=== PATIENT | female | born 1940 | race Caucasian/White ===

== ENCOUNTER 2018-02-14 02:06 | Inpatient (IN) | payer OTHER, MEDICARE ==
[~2018-02-14] VITALS: Ht 154.9 cm; Wt 71.4 kg
[~2018-02-14 02:06] MED LIST: ACETAMINOPHEN/O1 TAB PO; ANAPROX DS550 MG PO; CENTRUM SILVER1 EAC3 PO; FAMOTIDINE20 M1 PO; FAMOTIDINE20 MG PO; FLEXERIL10 MG PO; LOVASTATIN40 M1 PO; MEVACOR40 MG PO; OXY IR5 MG PO; ULTRAM50 M1 PO; VALIUM2 MG PO; VITAMIN C1000 M4 PO; VITAMIN D-32000 UNI1 PO
[2018-02-14] MEDS ORDERED: ALIGN4 M1 PO (07:00)
--- NOTE | 2018-02-14 09:39 | Operative Report ---
Operative/Inv Procedure Report Surgery Date: 02/14/18 Name of Procedure: Right total hip arthroplasty Pre-Operative Diagnosis: Right hip primary osteoarthritis Post-Operative Diagnosis: Same Estimated Blood Loss: 200 Surgeon/Aluminum Siding Mechanic: Elaine STRATTON,Elio Vernon Anesthesia: general endotracheal tube Implants: Dax secure fit femoral stem size 8 with a 127 neck angle 54 acetabulum Trident 36+0 Biolox femoral head Drains: None Specimens: Femoral head and acetabular reamings, degenerative labrum Microbiology: Urine Complications: None Condition: Stable Operative Indication: Patient is a 77-year-old woman with a fairly long history of gradually worsening right hip symptoms. Symptoms were controlled with conservative measures for a period of time. However, more recently her symptoms worsened and did not respond to standard conservative treatments. Due to these ongoing symptoms that interfere with normal activities of daily living, she wished to proceed with total hip arthroplasty. Risks, benefits and expectations were discussed which included but were not limited to persistent hip pain, need for subsequent surgery, infection, DVT, injury to blood vessel or nerve, dislocation leg length discrepancy and anesthesia risks Operative/Procedure Note Note: Patient was brought to the operating room and transferred to the operating table. Once under appropriate anesthesia the patient was placed into a left lateral decubitus position with right side up. All bony prominences were well- padded. The right lower extremity was prepped and draped in standard fashion. Preoperative IV antibiotics were given prophylactically. A standard lateral incision was made for anticipated superior approach the hip. Incision was taken down sharply to the underlying fascia. The fascia was incised in line with the skin incision. Hip was internally rotated placing the external rotators on tension. Piriformis is identified and reflected posteriorly this was bluntly to identify the interval between the gluteus minimus tendon and the superior capsule and a retractor was placed in this interval. An inferior retractor was placed under the femoral neck. The capsule was incised. A rectangular portion of the capsule was reflected posteriorly for later repair. Superior and inferior portions of the capsule were excised. Hip was dislocated. Severe end- stage generative changes and eburnated bone of the femoral head was identified. Retractors were placed to protect the soft tissues as the femoral neck cut was made. This cut was made based on preoperative templating and intraoperative measurements and anatomy. This exposed the acetabulum. Again there was matching degenerative changes of the acetabular fossa. Anterior retractor was placed. Large portion of the anterior labrum was was very degenerative. The labrum was excised circumferentially. An inferior retractor was placed as well. Remaining soft tissues were removed from the acetabular fossa. This was followed by reaming up to a size 53 for anticipated insertion of a size 54 acetabular shell. A trial 52 shell was used to confirm circumferential reaming. The acetabulum was slightly all long. I was satisfied with the circumferential reaming. I removed the trial area copious irrigation of the acetabular fossa followed. Then I inserted the definitive size 54 Trident acetabulum with the appropriate anteversion and abduction based on anatomy, templating and Dax tower. Excellent scratch fit. I then placed 2 cancellus screws in the safe zone. After irrigation of the acetabular shell, I placed the definitive liner to accept a 36 mm femoral head. The locking mechanism was confirmed. The left sponges place and the acetabular fossa to protect the polyethylene during preparation of the femur area hip was internally rotated 90 and flexed about 60 site. Hand reamers up to a size 8. I broached to a size 8. I was satisfied with the fit and fill of a size 8 broach. I left this in place and trialed off of this. Again, based on patient's anatomy a 127 neck angle was chosen. The reduction was performed. Excellent stability. Leg lengths were matched. I was satisfied with the stability with the trial in place. No evidence of posterior instability with simultaneous internal rotation adduction and flexion to greater than 90. No evidence of anterior instability with simultaneous external rotation and extension. No evidence of impingement. Copious irrigation followed. I removed the trial femoral stem from the canal. After copious irrigation was completed I placed the definitive size 8 secure fit femoral stem the appropriate version based on the position of the previously removed broach. Excellent scratch fit. The trunnion was dried and the definitive size 36+0 Biolox femoral head was impacted in place. The locking mechanism was confirmed. Hip was reduced and stability was confirmed once again as was the leg lengths. Copious irrigation followed every level of closure. The capsule and piriformis were repaired. The fascia was closed with interrupted #1 Vicryl sutures. Subcutaneous tissues closed in 2 layers due to the depth of the wound with 2-0 Vicryl and skin was closed with francheska. Appropriate dressings were applied and patient was awakened and taken the recovery room in good condition. No intraoperative complications blood loss was approximately 200 mL Discharge Disposition: PACU
--- NOTE | 2018-02-14 11:14 | RADIOLOGY REPORT ---
EXAMINATION: XR HIP, RIGHT CLINICAL INFORMATION: Status post right total hip replacement. COMPARISON: None TECHNIQUE: Single view of the right hip. FINDINGS: There has been a right total hip replacement. Alignment appears anatomic on this single view. No evidence of periprosthetic fracture, or hardware dislocation. The visualized pelvic ring is intact. There are immediately postoperative changes including soft tissue air and skin francheska. IMPRESSION: Expected immediately postoperative appearance after right total hip replacement.
[2018-02-14 11:28] VITALS: BP 134/82
--- NOTE | 2018-02-14 13:36 | Admission Core Measures ---
Acute Coronary Syndrome (CM) ACS Core Measures Acute Coronary Syndrome Diagnosis No Congestive Heart Failure (NEW) CHF Core Measures Congestive Heart Failure Diagnosis No Cerebrovascular Accident (NEW) CVA Core Measures CVA/TIA Diagnosis No Venous Thromboembolism VTE Core Placido (View Protocol) VTE Risk Factors Surgery No Mechanical VTE Prophylaxis d/t N/A MechProphylax Ordered No VTE Pharm Prophylaxis d/t NA PharmProphylax ordered Problem List As ranked by this Provider includes Assessment & Plan 1. Unilateral primary osteoarthritis, right hip HOME MEDS Home Med List Ascorbic Acid (Vitamin C) 1,000 MG TAB 1 TAB PO DAILY SUPPLEMENT (Reported) Bifidobacterium Infantis (Align) 4 MG (1 BILLION CELL) CAPSULE 1 PO D unknown (Reported) CHOLECALCIFEROL (VITAMIN D3) (Vitamin D) 2,000 IU SGL 1 CAP PO DAILY SUPPLEMENT (Reported) CYCLOBENZAPRINE HCL (Flexeril) 10 MG TAB 1 TAB PO TID PRN SPASM Famotidine 20 MG TAB 1 TAB PO BID GI (Reported) Lovastatin 40 MG TAB 1 TAB PO DAILY CHOLESTEROL (Reported) MULTIVIT-MIN/FA/LYCOPEN/LUTEIN (Centrum Silver Tablet) 1 TAB TAB 1 TAB PO DAILY SUPPKLEMENT (Reported) Naproxen (Anaprox Ds) 550 MG TABLET 1 TAB PO BID PRN pain OXYCODONE HCL/ACETAMINOPHEN (Oxycodone-Acetaminophen 5-325) 1 TAB TAB 1 TAB PO BID PRN PAIN (Reported) Oxycodone Hydrochloride (Oxy Ir) 5 MG CAP 1-2 TAB PO Q6H PRN PAIN Tramadol HCl (Ultram) 50 MG TABLET 1-2 TAB PO Q6PRN PRN severe pain
--- NOTE | 2018-02-14 13:45 | Patient Discharge Instructions ---
Discharge Instructions General Discharge Information You were seen/treated for: Right hip pain related to unilateral primary osteoarthritis You had these procedures: Right total hip replacement Watch for these problems: Increasing pain despite the use of pain medications Increasing redness, warmth and swelling Drainage of any type from incision Inability to bear weight on operative leg Inability to urinate or move bowels Persistant nausea and vomitting Fever greater than 101.5 Do not soak the wound: Yes No bath, but you may shower: Yes Other wound care: Keep wound clean and dry No ointments of any kind on or near incision, no exceptions Diet Continue normal diet: Yes Recommended Diet: Regular Activity Full Activity/No Limits: No Activity Self Limited: Yes Pounds, do NOT lift more than: 10 Additional ACTIVITY Info: Posterior hip precautions: No bending greater than 90 degrees at waste Do not cross right leg over left leg Do not bend right leg and rotate it inward *do not lift posterior hip precautions until otherwise told to do so by Dr. Henry* Acute Coronary Syndrome Inclusion Criteria At DC or during hospital stay patient has or had the following: ACS DIAGNOSIS No Discharge Core Measures Meds if any: Prescribed or Continued at Discharge Meds if any: NOT Prescribed or Continued at Discharge Congestive Heart Failure Inclusion Criteria At DC or during hospital stay patient has or had the following: CHF DIAGNOSIS No Discharge Core Measures Meds if any: Prescribed or Continued at Discharge Meds if any: NOT Prescribed or Continued at Discharge Cerebrovascular accident Inclusion Criteria At DC or during hospital stay patient has or had the following: CVA/TIA Diagnosis No Discharge Core Measures Meds if any: Prescribed or Continued at Discharge Meds if any: NOT Prescribed or Continued at Discharge Venous thromboembolism Inclusion Criteria VTE Diagnosis No VTE Type NONE VTE Confirmed by (Test) NONE Discharge Core Measures - Per Current guidelines, there needs to be overlap - treatment for the first 5 days of Warfarin therapy. - If discharged on Warfarin prior to 5 days of - overlap therapy, the patient will need to be - assessed for post discharge needs including - *Post discharge parental anticoagulation - *Warfarin and/or parental anticoagulation education - *Follow up date to check INR post discharge At least 5 days overlap therapy as Inpatient No Meds if any: Prescribed or Continued at Discharge Note: Overlap Therapy is Warfarin and Anticoagulant Meds if any: NOT Prescribed or Continued at Discharge
--- NOTE | 2018-02-14 13:50 | Surgical Discharge Summary ---
Visit Information Visit Dates Admission Date: 02/14/18 Discharge Date: 02/16/18 History of Present Illness Chief Complaint: Right hip pain related to uninlateral primary osteoarthritis Medical History Blood Transfusion Hx: No Neurological: NONE EENT: cataracts Cardiovascular: hypertension, hyperlipidemia Respiratory: NONE Gastrointestinal: GERD Hepatic: NONE Renal: NONE Musculoskeletal: sciatica, OA R ANKLE (DEFORMITIY R ANKLE) Psychiatric: NONE Endocrine: NONE Blood Disorders: NONE Cancer(s): NONE IT DESKTOP SUPPORT SPECIALIST/Reproductive: NONE History of MRSA: No History of VRE: No History of CDIFF: No Isolation History: Standard Surgical History Pertinent Surgical History: hysterectomy, laminectomy, "BACK SURGEY". R ANKLE "RECONSTRUCTION , ? EVENS SNOOK PRODECURE, ACHILLES LENGTHENING" " HERNIA REPAIR PARATHYROIDECTOMY Psychosocial History Where Do You Live? Home Who Do You Live With? Spouse What is Your Primary Language? Malay Review of Systems: See H&P Hospital Course Course Attending Physician: Elaine STRATTON,Saulo Primary Care Physician: Eduardo Baxter MD Hospital Course: Chris was admitted to the hosptial on 02/14/18 after undergoing a right sided total hip replacement. She tolerated the procedure well and was transferred to a general surgical floor. Her diet was advanced and tolerated. She voided spontaneously. She was evaluated and treated by physical therapy. At the time of hospital discharge, her vital signs were stable and within normal limits, her neurovascular status was intact and her pain was controlled with the use of oral pain medication. She was deemed appropriate for discharge. Allergies: Coded Allergies: NO KNOWN ALLERGIES (05/29/11) Disposition Summary Disposition Principal Diagnosis: Right hip unilateral primary osteoarthritis Additional Diagnosis: None Discharge Disposition: home health services Discharge Instructions General Discharge Information Code Status: Full Code Patient's Diet: Regular, advance as tolerated Patient's Activity: WBAT Follow-Up Instructions/Appts: Follow up with Dr. Henry in 2 weeks from date of surgery Medications at Discharge Discharge Medications: Stop taking the following medications: OXYCODONE HCL/ACETAMINOPHEN (Oxycodone-Acetaminophen 5-325) 1 TAB TAB ORAL TWICE DAILY as needed for PAIN Qty = 42 Oxycodone Hydrochloride (Oxy Ir) 5 MG CAP ORAL Q6H as needed for PAIN Qty = 20 Naproxen (Anaprox Ds) 550 MG TABLET ORAL TWICE DAILY as needed for pain Qty = 60 Tramadol HCl (Ultram) 50 MG TABLET ORAL EVERY 6 HOURS NEEDED as needed for severe pain Qty = 30 Continue taking these medications: Lovastatin (Lovastatin) 40 MG TAB 1 Tablet ORAL DAILY Qty = 90 Instructions: with food Comments: PER PT Famotidine (Famotidine) 20 MG TAB 1 Tablet ORAL TWICE DAILY Qty = 180 Comments: PER PT CHOLECALCIFEROL (VITAMIN D3) (Vitamin D) 2,000 IU SGL 1 Capsule ORAL DAILY Comments: PER PT Ascorbic Acid (Vitamin C) 1,000 MG TAB 1 Tablet ORAL DAILY Comments: PER PT MULTIVIT-MIN/FA/LYCOPEN/LUTEIN (Centrum Silver Tablet) 1 TAB TAB 1 Tablet ORAL DAILY Comments: PER PT CYCLOBENZAPRINE HCL (Flexeril) 10 MG TAB 1 Tablet ORAL THREE TIMES DAILY as needed for SPASM Qty = 15 Bifidobacterium Infantis (Align) 4 MG (1 BILLION CELL) CAPSULE 1 ORAL Every Day
--- NOTE | 2018-02-14 13:51 | PN- Orthopedic ---
Subjective Subjective: Pt complaining of fatigue and dry mouth. Her body temperature has been recorded as 94.5 rectally, but patient denies feeling cold. She denies chest pain, shortness of breath and difficulty breathing. She denies nausea and vomitting. She denies surgical pain presently. She has yet to ambulate. She has yet to void, neal catheter remaining in place. Objective Vital Signs and I&Os Vital Signs Date Time Temp Pulse Resp B/P B/P Pulse O2 O2 Flow FiO2 Mean Ox Delivery Rate 02/14 1209 94.5 02/14 1128 85 18 134/82 96 Room Air Intake & Output 02/14 1600 02/14 0800 02/14 0000 02/13 1600 02/13 0800 02/13 0000 Intake Total Output Total Balance Patient 157 lb Weight Weight Bed scale Measurement Method Physical Exam: General: Tired, oriented x3 Cardiac: RRR, s1s2 Pulm: CTA bialterally, non-labored respiratory effort, no cyanosis Abdomen: Non-tender, non-distended Extremities: Moves all extremities, distal sensation grossly intact. Skin warm and dry to touch, and well perfused. Abduction pillow in place, no resting internal or external rotation of right hip. Dressing dry and intact. Thigh compartment soft. Bilateral calves soft and non-tender Assessment/Plan Assessment/Plan This is a 77 year old female, PMH significant for hld and gerd. She is pod 0, s /p R THR. Monitoring body temperature now for rectal reading of 94.5. Moist heat applied in axilla, warm blankets applied, head wrapped in towel. -Recommend warm broth versus cool liquids for now -Continue external heat applications, rice sock preferable but reportedly unavailable -Continue to assess body temperature, skin checks -IV fluids for hydration, will dc if pt tolerating adequate po -Continue posterior hip precautions: abduction pillow in place -Mechanical dvt ppx: ALPS -Pharm dvt ppx: eliquis 2.5 bid to start tomorrow -Abx ppx: Vancomycin for 1 additional dose -Pain control: percocet with iv morphine for breakthrough -Activity: OOB, wbat, posterior hip precautions -Dressing: To be changed by surgical pa on POD 2 Will discuss plan of care with Dr. Henry Core Measures Venous Thromboembolism VTE Risk Factors Surgery No Mechanical VTE Prophylaxis d/t N/A MechProphylax Ordered No VTE Pharm Prophylaxis d/t NA PharmProphylax ordered
[2018-02-14 14:00] VITALS: BP 125/77
[2018-02-14 16:18] VITALS: BP 124/82
[2018-02-14 17:33] VITALS: BP 128/86
[2018-02-14 22:01] VITALS: BP 140/82
[2018-02-15 01:00] VITALS: BP 132/82
[2018-02-15 06:45] VITALS: BP 112/66
[2018-02-15 08:31] LABS: ABSOLUTE BASOPHIL COUNT 0 /CUMM (0.0-0.2); ABSOLUTE EOSINOPHIL COUNT 0 /CUMM (0.0-0.7); ABSOLUTE GRANULOCYTE CT 5.1 /CUMM (1.4-6.5); ABSOLUTE LYMPH COUNT 0.9 /CUMM (1.2-3.4); ABSOLUTE MONOCYTE COUNT 0.5 /CUMM (0.10-0.60); BASOPHIL % 0.2 % (0.0-2.0); EOSINOPHIL % 0.6 % (0-5); GRANULOCYTE % 77.8 % (42.2-75.2); HEMATOCRIT 29.5 % (37-47); MEAN CORPUSCULAR HGB 30.7 PG (27.0-31.0); MEAN CORPUSCULAR HGB CONC 32.6 G/DL (33.0-37.0); MEAN CORPUSCULAR VOLUME 93.9 FL (81.0-99.0); MEAN PLATELET VOLUME 8.2 FL (7.4-10.4); PLATELET COUNT 211 /CUMM (130-400); RBC DISTRIBUTION WIDTH 14.8 % (11.5-14.5); RED BLOOD CELL CT 3.15 /CUMM (4.20-5.40); WHITE BLOOD CELL COUNT 6.5 /CUMM (4.8-10.8)
--- NOTE | 2018-02-15 08:32 | PN- Orthopedic ---
See Addendum Subjective Subjective: Is feeling more alert vs yesterday. Did not ask for any pain medication overnight, is feeling discomfort now. Has yet to get oob. Neal to be dc'd this am. Denies chest pain, shortness of breath and difficulty breathing. Denies nausea and vomitting, tolerating po well. Objective Vital Signs and I&Os Vital Signs Date Time Temp Pulse Resp B/P B/P Pulse O2 O2 Flow FiO2 Mean Ox Delivery Rate 02/15 0645 97.8 75 20 112/66 97 Room Air 02/15 0100 97.9 63 18 132/82 96 Room Air 02/14 2201 97.6 95 20 140/82 93 Room Air 02/14 1733 93 128/86 96 Room Air 02/14 1618 94 124/82 98 Room Air 02/14 1552 96.0 02/14 1545 94.5 02/14 1431 95.8 02/14 1400 94.9 92 17 125/77 96 Room Air 02/14 1310 94.9 02/14 1209 94.5 02/14 1128 85 18 134/82 96 Room Air Intake & Output 02/15 1600 08 0800 05/08 0000 02/14 1600 02/14 0800 05/ 0000 Intake Total 1080 2150 Output Total 903 967 9705 Balance 130 -250 1025 Intake, IV 600 1910 Intake, Oral 480 240 Output, Other 200 Output, Urine 950 250 925 Patient 157 lb Weight Weight Bed scale Measurement Method Physical Exam: General: Alert and oriented x3, no acute distress Cardiac: RRR, s1s2 Pulm: CTA bialterally, non-labored respiratory effort Abd: Non-tender, non-distended Extremities: Moves all extremities, distal sensation grossly intact. Skin warm and well perfused. DP pulses palpable. ALP on right leg tight, causing discomfort, loosened. Bilateral calves soft. Surgical site: Right hip. Dressing dry and intact. Thigh compartment soft, no resting internal or external rotation of right leg. Assessment/Plan Assessment/Plan This is a 77 year old female, POD 1, s/p R NICKI -Eliquis 2.5 bid to start today -OOB, WBAT, posterior hip precautions -DC iv fluids -DC neal -Continue home meds Will discuss poc with Dr Henry Core Measures Venous Thromboembolism VTE Risk Factors Surgery No Mechanical VTE Prophylaxis d/t N/A MechProphylax Ordered No VTE Pharm Prophylaxis d/t NA PharmProphylax ordered
[2018-02-15 11:19] VITALS: BP 116/78
[2018-02-15 15:15] VITALS: BP 108/60
[2018-02-15 22:15] VITALS: BP 110/58
[2018-02-16 05:55] VITALS: BP 142/82
[2018-02-16] MEDS ORDERED: DOCUSATE SODIU100 M3 PO (07:30)
[2018-02-16] MEDS ORDERED: SENNA PLUS TAB1 EACH PO (07:30)
[2018-02-16] MEDS ORDERED: PERCOCET 5-3251 EACH PO (07:30)
[2018-02-16] MEDS ORDERED: ELIQUIS2.5 M1 PO (07:30)
--- NOTE | 2018-02-16 07:34 | PN- Orthopedic ---
See Addendum Subjective Subjective: Patient with complaints of spasming in the thigh early this morning. Otherwise her pain is well controlled and she has no complaints. Denies any fever or flulike illness. Objective Vital Signs and I&Os Vital Signs Date Time Temp Pulse Resp B/P B/P Pulse O2 O2 Flow FiO2 Mean Ox Delivery Rate 02/16 0555 98.3 91 20 142/82 96 02/15 2215 97.9 80 16 110/58 96 Room Air 02/15 1515 98.2 85 20 108/60 96 Room Air 02/15 1119 98.0 80 20 116/78 96 Room Air Intake & Output 02/16 0800 02/16 0000 02/15 1600 02/15 0800 02/15 0000 02/14 1600 Intake Total 120 343 205 8237 2150 Output Total 400 450 400 004 663 4246 Balance -280 450 575 130 -250 1025 Intake, IV 75 600 1910 Intake, Oral 120 900 900 480 240 Number 0 Bowel Movements Output, Other 200 Output, Urine 400 450 400 950 250 925 Patient 157 lb Weight Weight Bed scale Measurement Method Physical Exam: Well-developed well-nourished no apparent distress. HEENT: Atraumatic, extraocular motion intact Neck: Supple, no lymphadenopathy Respiratory: No respiratory distress Extremities: No edema RIGHT lower extremity hip dressing in place, Dressing clean dry and intact with minimal bloody staining, dressing change, dry sterile dressing applied Incision without erythema Mild thigh swelling No signs of infection. No shortening or rotation Hip range of motion is limited and without unexpected pain Neurovascularly intact distally Bilateral calves are supple, nontender. Neuro: Alert and oriented x3 Psych: Mood affect normal, normal memory normal judgment. Skin: Warm and dry, no rash on exposed skin Results Last 48 Hours of Labs: Laboratory Tests 02/15 06 Chemistry Sodium (137 - 145 mmol/L) 138 Potassium (3.5 - 5.1 mmol/L) 4.5 Chloride (98 - 107 mmol/L) 103 Carbon Dioxide (22 - 30 mmol/L) 25 Anion Gap (5 - 16) 9 BUN (7 - 17 mg/dL) 13 Creatinine (0.5 - 1.0 mg/dL) 0.6 Estimated GFR (>60 ml/min) > 60 BUN/Creatinine Ratio (7 - 25 %) 21.7 Hematology CBC w Diff NO MAN DIFF REQ WBC (4.8 - 10.8 /CUMM) 6.5 RBC (4.20 - 5.40 /CUMM) 3.15 L Hgb (12.0 - 16.0 G/DL) 9.6 L Hct (37 - 47 %) 29.5 L MCV (81.0 - 99.0 FL) 93.9 MCH (27.0 - 31.0 PG) 30.7 MCHC (33.0 - 37.0 G/DL) 32.6 L RDW (11.5 - 14.5 %) 14.8 H Plt Count (130 - 400 /CUMM) 211 MPV (7.4 - 10.4 FL) 8.2 Gran % (42.2 - 75.2 %) 77.8 H Lymphocytes % (20.5 - 51.1 %) 13.8 L Monocytes % (1.7 - 9.3 %) 7.6 Eosinophils % (0 - 5 %) 0.6 Basophils % (0.0 - 2.0 %) 0.2 Absolute Granulocytes (1.4 - 6.5 /CUMM) 5.1 Absolute Lymphocytes (1.2 - 3.4 /CUMM) 0.9 L Absolute Monocytes (0.10 - 0.60 /CUMM) 0.5 Absolute Eosinophils (0.0 - 0.7 /CUMM) 0 Absolute Basophils (0.0 - 0.2 /CUMM) 0 Assessment/Plan Assessment/Plan Postop day #2 status post right total hip arthroplasty Pain medication as needed. Out of bed Physical therapy, weightbearing as tolerated Eliquis for DVT prophylaxis ALPS for DVT prophylaxis Abduction pillow Regular home meds Dressing changed today Discharge home today with [facility] services for nursing and physical therapy Core Measures Venous Thromboembolism VTE Risk Factors Surgery No Mechanical VTE Prophylaxis d/t N/A MechProphylax Ordered No VTE Pharm Prophylaxis d/t NA PharmProphylax ordered
[2018-02-16] MEDS ORDERED: CYCLOBENZAPRINE10 M1 PO (13:20)
[2018-02-16 14:21] VITALS: BP 114/68
== END 2018-02-16 15:47 | disposition home health service (06) | DRG 470 ==
LOC: SDA 02:06 → ENRESERV 10:04 → ENTRNSPT 10:54 → EDTRNSPT 10:58 → EDTRNSPTSTS 10:58 → EDTRNSPT 11:00 → 2NB 11:08 → CMPTRNSPT 11:22 → ENPENDDIS 02-16 07:35 → ENTRNSPT 02-16 15:38 → EDTRNSPT 02-16 15:43 → EDTRNSPTSTS 02-16 15:43 → 2NB 02-16 15:47 → CMPTRNSPT 02-16 16:04
PROVIDERS: Physician Assistant Surgical
PROC: 0SR904A Replacement of Right Hip Joint with Ceramic on Polyethylene Synthetic Substitute, Uncemented, Open Approach (ICD-10-PCS; principal; 2018-02-14)
DX: M16.11 Unilateral primary osteoarthritis, right hip (principal); E78.5 Hyperlipidemia, unspecified; I10 Essential (primary) hypertension; K21.9 Gastro-esophageal reflux disease without esophagitis; Z90.710 Acquired absence of both cervix and uterus
CPT/HCPCS: 2NBP; 36592; 73501; 82436; 87086; 97110-GO; 97116-GO; 97161-GP; 97530-GO; C9399; J0131; J1100; J2405; J3370; J7040